=== PATIENT | female | born 1995 | race Caucasian/White ===

== ENCOUNTER 2016-12-20 05:31 | Day surgery (SDC) | payer SELFPAY ==
[~2016-12-20] VITALS: Ht 172.7 cm; Wt 122.0 kg
--- NOTE | ~2016-12-20 | S ---
[facility] [address] [place] [address] SURGICAL PATH RPT PROCEDURE Name: HAMILTON FERNANDO Room #: 422-P REG [facility] [place] [place] M.R.#: [id number] Admission: 12/20/16 Date of : 89 Discharge: Report #: [id number] Path Case #: [id number] PATHOLOGY REPORT DRAFT COLLECTION DATE: 12/20/2016 RECEIVED DATE: 12/20/2016 SPECIMEN(S) RECEIVED: A.Gastric sleeve
--- NOTE | ~2016-12-20 | O ---
[facility] [place] [address] OPERATIVE REPORT Name: HAMILTON FERNANDO Room #: 422-P REG [facility] [place] M.R.#: [id number] Admission: 12/20/16 Attend Phys: Mo Fan MD, F Discharge: Date of : [birth year] Report #: [id number] THIS REPORT FOR: //name// CC: Mary Fan DATE OF SERVICE: 12/20/2016 SURGEON: Mo Fan MD. IMPROVEMENT RN: Shahid Garcia MD. SECOND ARMATURE CONNECTOR: ASHLY Suh. PREOPERATIVE DIAGNOSES: 1. Morbid obesity. 2. Hypothyroidism. 3. Pernicious anemia. POSTOPERATIVE DIAGNOSES: 1. Morbid obesity. 2. Hypothyroidism. 3. Pernicious anemia. PROCEDURE: Laparoscopic sleeve gastrectomy with EGD. ANESTHESIA: General endotracheal anesthesia and local anesthetic. ESTIMATED BLOOD LOSS: 5 mL. SPECIMEN: Lateral stomach. COMPLICATIONS: None appreciated. INDICATIONS FOR PROCEDURE: This is a 21-year-old female patient who is morbidly obese with a history of hypothyroidism and pernicious anemia. She has been cleared from a multidisciplinary standpoint for bariatric surgery. Any amount of weight she has lost in the past, she has quickly regained, plus additional weight, after stopping the modality. The patient presents today for laparoscopic sleeve gastrectomy. OPERATIVE FINDINGS: On EGD, the patient's esophagus was normal, down to 38 cm, where the GE junction and Z-line were seen. There was no evidence for hiatal hernia. The stomach and duodenum to the third portion were also normal without [facility] [address] [place] [address] OPERATIVE REPORT Name: HAMILTON FERNANDO Room #: 422-P REG [facility]#: [id number] Admission: 12/20/16 Attend Phys: Mo Fan MD, F Discharge: Date of : [birth year] Report #: [id number] polyps, diverticula, masses, or ulcers. On retroflexion of the gastroscope within the antrum of the stomach, there was no evidence for hiatal hernia. Laparoscopically, the patient had an enlarged stomach as expected. The patient's liver was slightly steatotic, without nitish steatohepatitis. The small-bowel and colon in the surrounding area appeared otherwise normal. The spleen was slightly enlarged. The gastric sleeve staple line was 1 cm lateral to the GE junction proximally, 3 cm lateral to the incisura of the stomach, and 4 cm proximal to the pylorus. There was no evidence for staple line leak after testing the anastomosis. Immediately after applying Tisseel to the staple line, the gastroscope was used to gently insufflate the stomach with carbon dioxide. No air bubbles were seen to be forming in the Tisseel, indicating no leak. In addition, endoluminally with the gastroscope, no bleeding was seen within the sleeve. No other significant intraabdominal pathology was identified. There was no evidence for iatrogenic injury. At the conclusion of the operation, sponge, needle, and instrument counts were correct. The excised stomach held 1000 mL of fluid. DESCRIPTION OF PROCEDURE IN DETAIL: After the benefits and risks of the procedure were explained to the patient which include but are not limited to risks of bleeding, infection, postoperative pain, postoperative expectations and risks of DVT and pulmonary embolus, informed consent was obtained. The patient was identified in the preoperative holding area. The patient was given IV antibiotics as documented in the chart in line with SCIP protocol. The patient was then taken to the operating room and was placed in the supine position. The patient was given IV sedation and was intubated without incident. SCDs were placed on the patient's bilateral lower extremities prior to induction of anesthesia. The patient had been placed in the modified low lying dorsal lithotomy position in stirrups on the beanbag. The beanbag and the patient were taped to the bed to secure the patient. A time-out was then performed to correctly identify the patient and procedure. An orogastric tube was placed by anesthesia. A bite block was placed and the fiberoptic EGD scope was passed into the patient's oropharynx, down the esophagus, into the stomach, and into the third portion of the duodenum. Findings are as noted above. The scope was slowly withdrawn into the antrum and the scope was retroflexed. The hiatus was visualized. The scope was then straightened and the end of the gastroscope was placed at the pylorus. The stomach was decompressed with the scope. The patient's abdomen was then prepped and draped in the standard sterile fashion with surgical prep. Local anesthetic was infiltrated into the skin and subcutaneous tissue in the left supraumbilical area where a sharp #15-blade scalpel was used to make a 5-mm incision. The 5-mm Visiport was placed intraperitoneally with the 5-mm 0-degree angled laparoscope. Pneumoperitoneum was then achieved with insufflation of carbon dioxide to 15 mmHg. A 5-mm [address] [address] OPERATIVE REPORT Name: HAMILTON FERNANDO Room #: 422-P REG [facility]#: [id number] Admission: 12/20/16 Attend Phys: Mo Fan MD, F Discharge: Date of : [birth year] Report #: [id number] 30-degree angled laparoscope was then inserted. The 15-mm port was placed in the right supraumbilical area after local anesthetic was infiltrated into the skin and subcutaneous tissue and an appropriately sized incision was made. Two additional 5 mm ports were placed in the left abdomen after local anesthetic was infiltrated and incisions were made. All ports were placed under direct visualization. The patient was then placed in reverse Trendelenburg position. Local anesthetic was infiltrated into the skin and subcutaneous tissue in the subxiphoid area and a 5-mm incision was made through which a 5-mm obturator was passed into the abdominal cavity through the fascia to create a passageway for the Randa liver retractor. The retractor was placed to retract the liver anteriorly. The retractor was held in place with the Iron Adoption Worker apparatus. All abdominal adhesions were then taken down with blunt dissection, sharp dissection and judicious use of the ultrasonic dissector. The gastrosplenic ligament and short gastric vessels were then divided using the ultrasonic dissector with appropriate traction. Bleeding points were made hemostatic with the ultrasonic dissector. Dissection was carried proximally up to the left winnie of the diaphragm. The distal end point of dissection was then measured at 4 cm proximal to the pylorus. The short gastric vessels and gastrocolic ligaments were dissected to that level. The stomach was then rotated medially to visualize any posterior attachments/adhesions to the stomach. The adhesions were dissected with a combination of sharp dissection and use of the ultrasonic dissector. The endoscope was then slightly withdrawn to place it along the lesser curvature of the stomach. Suction was applied to the orogastric tube which was then removed, leaving the endoscope in place as a bougie. The gastric sleeve was then created. Two black loads of the powered endoscopic JENNIFER stapler buttressed with Zoila-Strips were used to staple and divide the stomach 4 cm proximal to the pylorus. Additional green loads buttressed with Zoila-strips were used to staple off the remainder of the stomach using the endoscope as the bougie. Care was taken to ensure that greater than 3 cm of space was present between the incisura and the staple line. The stomach was fully transected and placed in the right upper quadrant of the abdomen for later removal. The staple line of the sleeve was then clipped with Hemoclips along the staple line to provide hemostasis. Tisseel was applied to the entire length of the staple line with the TemptsterspOptiNose aerosolizer to fully ensure hemostasis. A leak test was performed next. The sleeve was insufflated with the endoscope which was slowly withdrawn. No air bubbles were seen in the Tisseel laparoscopically. Endoluminally, no bleeding was seen. The stomach was fully decompressed and the scope was slowly withdrawn. The Randa liver retractor was then loosened from the Iron Adoption Worker apparatus and it was removed without difficulty. The stomach was then removed from the patient's body through the 15-mm port [address] [address] OPERATIVE REPORT Name: HAMILTON FERNANDO Room #: 422-P REG [facility] [place] M.R.#: [id number] Admission: 12/20/16 Attend Phys: Mo Fan MD, F Discharge: Date of : [birth year] Report #: [id number] under direct visualization. A small amount stretching of the fascia was required to create an opening large enough for removal of the stomach. After its removal, the 15-mm port site fascial opening was closed with an 0-PDS suture using the Jairo-Cora laparoscopic fascial closure device. All ports were removed after the abdominal cavity was desufflated. The fascial suture was tied. Interrupted subcuticular 4-0 Monocryl sutures and Dermabond were used to close all skin incisions. The patient tolerated the procedure well. The patient was awakened, extubated and taken to the recovery room in stable condition with no apparent intraoperative complications. By: [id number] Mo Fan MD, FACS /nt
[~2016-12-20 05:31] MED LIST: B12INJ IM; CAMRESE 0.15-01 EACH PO; DULERA 200 MCG/13 GM INH; LEVOTHYROXIN0.075 MG PO; MINOCIN MC; PHENERGAN PO; SINGULAIR 10 MG10 M1 PO; SYNTHROID50 MCG PO; VENTOLIN HFA 1818 GM INH
[2016-12-20 07:30] VITALS: BP 147/88
[2016-12-20 10:53] VITALS: BP 140/91
[2016-12-20 11:20] VITALS: BP 137/98
[2016-12-20 15:29] VITALS: BP 135/81
[2016-12-20 20:00] VITALS: BP 127/63
[2016-12-21 04:48] VITALS: BP 126/66
[2016-12-21 05:25] LABS: ABSOLUTE NEUTROPHILS 6.9 thou/uL (1.4-8.2); BASOPHILS 0.3 % (0.0-2.0); EOSINOPHILS 0.2 % (0.0-3.0); HEMATOCRIT 32.7 % (37.0-47.0); HEMOGLOBIN 10.8 gm/dL (12.0-15.0); LYMPHOCYTES 25.4 % (24.0-44.0); MCH 26.6 pg (26.0-34.0); MCHC 33.1 g/dL (28.0-37.0); MCV 80.5 fL (80.0-100.0); MONOCYTES 7.4 % (1.0-8.0); PLATELET COUNT 251 thou/uL (150-400); POLYS 66.7 % (36.0-66.0); RBC 4.06 mil/uL (4.20-5.00); RDW 14.4 % (10.5-14.5); WBC 10.3 thou/uL (4.0-11.0)
[2016-12-21 05:30] LABS: MANUAL DIFF NO
[2016-12-21 05:36] LABS: CALCIUM 8.2 mg/dL (8.5-10.1); CREATININE 0.8 mg/dL (0.6-1.0); POTASSIUM 3.8 mmol/L (3.5-5.1)
[2016-12-21 07:14] VITALS: BP 143/68
[2016-12-21 10:14] VITALS: BP 143/68
[2016-12-21 10:48] VITALS: BP 143/68
== END 2016-12-21 11:10 | disposition home or self-care (01) ==
LOC: OR 05:31 → TBA 05:31 → OR 06:51 → 4E 11:07 → OR 11:23
PROVIDERS: Surgery
DX: E66.01 Morbid (severe) obesity due to excess calories (principal); E03.9 Hypothyroidism, unspecified; D51.0 Vitamin B12 deficiency anemia due to intrinsic factor deficiency; K44.9 Diaphragmatic hernia without obstruction or gangrene; E11.9 Type 2 diabetes mellitus without complications
CPT/HCPCS: 50010; 50101

== ENCOUNTER 2016-12-23 00:02 | Inpatient (IN) | payer OTHER ==
[~2016-12-23] VITALS: Ht 172.7 cm; Wt 123.8 kg
[2016-12-23] VITALS (7 sets, daily range): BP systolic 96–159; BP diastolic 43–88
--- NOTE | ~2016-12-23 | HC ---
[facility] [place] [address] CONSULTATION Name: HAMILTON FERNANDO Room #: 424-P [facility] [place] .R.#: [id number] Admission: 12/23/16 Attend Phys: Richard Alicea MD Discharge: Date of : 94 Report #: [id number] THIS REPORT FOR: //name// CC: Mary Fan DATE OF CONSULTATION: 12/24/2016. REASON FOR CONSULTATION: Acute kidney injury. HISTORY OF PRESENT ILLNESS: This 21-year-old female underwent laparoscopic sleeve procedure on December 20. She had poor oral intake following this procedure and had significant diarrhea. She became increasingly weak with fever and presented to the Emergency Room in followup. She was found to have acute kidney injury and admitted for further evaluation and treatment. Her initial creatinine on presentation had risen from a preop value of 1.1 to a value of 3.5. Repeat value is 4.1 prompting renal consultation. The patient has no prior history of nephrolithiasis, hypertension, urinary tract infection or gross hematuria. There is no family history of renal disease. PAST MEDICAL HISTORY: Is otherwise remarkable for exogenous obesity. MEDICATIONS: Include Dulera, Synthroid, Singulair, Ventolin, control pills and vitamin B12. PAST SURGICAL HISTORY: She is status post previous cholecystectomy, Achilles tendon surgery, wisdom tooth extraction, adenoidectomy. ALLERGIES: She has no known allergies. PERSONAL AND SOCIAL HISTORY: The patient consumes alcohol socially. She has no history of substance abuse. She does not smoke. REVIEW OF SYSTEMS: Remarkable as described in the history of present illness for diarrhea and fever. She denies shortness of breath, productive cough, hemoptysis, chest pain, palpitations. PHYSICAL EXAMINATION: GENERAL: Reveals a well-developed, well-nourished female appearing her stated age, in no acute distress. VITAL SIGNS: Blood pressure 101/54, temperature 98.3, pulse 87, respirations 19. SKIN: Warm and dry. There is fair turgor noted. Mucous membranes are somewhat dry. HEENT: The head is normocephalic and atraumatic. The sclerae are white and [facility] [address] [place] [address] CONSULTATION Name: HAMILTON FERNANDO Room #: 424-P [facility] IN .R.#: [id number] Admission: 12/23/16 Attend Phys: Richard Alicea MD Discharge: Date of : 94 Report #: [id number] conjunctivae are not injected. The pharynx is benign. NECK: Supple. LUNGS: Sykes are grossly clear to percussion and auscultation. CARDIOVASCULAR: Reveals a regular rate and rhythm without rub. ABDOMEN: Soft and nontender without palpable mass or organomegaly. NEUROLOGIC: Reveals the patient to be alert and cooperative with a nonfocal examination. LABORATORY STUDIES: Available at this time includes sodium 141, potassium 3.0, chloride 107, CO2 19, BUN 13, creatinine 3.5, glucose 102. White blood cell count 16,100, hemoglobin 11.5, hematocrit 35.1, platelet count 242,000. Urinalysis: Clear yellow urine, specific gravity 1.025, pH of 5.5, 1+ ketones, 1+ blood, 1+ test. ASSESSMENT: 1. Acute kidney injury post gastric sleeve procedure. The patient does appear somewhat dehydrated at this time and with the combination of poor oral intake and diarrhea, this is the leading diagnostic possibility. There are no clear nephrotoxins. I agree at this time with continued isotonic hydration at rehydration rates. We will obtain the urine for sodium, creatinine and a urine for eosinophils. Renal ultrasound will be checked to rule out the very likely possibility of urinary tract obstruction. 2. Status post gastric sleeve. 3. Febrile illness. 4. Diarrhea. PLAN: As described above. Please see orders. <ELECTRONICALLY SIGNED> By: Remberto Mckeno MD 12/30/16 0552 [id number] Remberto Mckeon MD /nt
--- NOTE | ~2016-12-23 | HC ---
[facility] [place] [address] CONSULTATION Name: HAMILTON FERNANDO Room #: 424-P ADM IN M.R.#: [id number] Admission: 12/23/16 Attend Phys: Richard Alicea MD Discharge: Date of : 94 Report #: [id number] THIS REPORT FOR: //name// CC: Mary Fan HISTORY OF PRESENT ILLNESS: The patient is a 21-year-old white woman, status post laparoscopic gastric sleeve procedure this past Friday, developed diarrhea, nausea, vomiting, and fever on Friday, is admitted. She is started on vancomycin, Levaquin, and today, she is feeling improved. Unfortunately, because of profuse diarrhea, she has acute tubular necrosis, nonoliguric. Dr. Gonsalez requests I evaluate and manage the patient's antibiotics. PAST MEDICAL HISTORY: History of sinusitis, recurrent; history of tympanostomy tube requirement, status post cholecystectomy, bronchial asthma, surgery for a left Achilles tendon problem, recent laparoscopic gastric banding, development of Clostridium difficile colitis, acute renal failure and positive stool for Campylobacter antigen. DRUG ALLERGIES: None listed. MEDICATIONS: The patient is on treatment with Levaquin 750 mg IV every 48 hours, vitamin B12 1000 mcg IM monthly, sodium bicarbonate infusion, budesonide inhalation twice daily, vancomycin 250 q.i.d., pantoprazole 40 mg b.i.d., Montelukast 10 mg at bedtime, acetaminophen p.r.n., levothyroxine 75 mcg daily, p.r.n. fentanyl, p.r.n., ondansetron. SOCIAL HISTORY: Adopted. FAMILY HISTORY: See H and P and as above. REVIEW OF SYSTEMS: Nausea, diarrhea and abdominal pain, improved. Fever, improved. PHYSICAL EXAMINATION: GENERAL: Obese woman. VITAL SIGNS: Febrile up to 103.4 on December 23, 100.6 on December 23 and 99.9 today; pulse 62, respirations 16, BP 132/62. Height 5 feet 8 inches, weight 273 pounds. HEENT: Within normal limits. NECK: Supple, no thyromegaly. LUNGS: Clear. HEART: S1, S2. ABDOMEN: Laparoscopic wounds, mildly tender mainly on the wounds. PELVIC AND RECTAL: Deferred. EXTREMITIES: No clubbing, cyanosis. [facility] [address] [place] [address] CONSULTATION Name: HAMILTON FERNANDO Room #: 424-P ADM IN M.R.#: [id number] Admission: 12/23/16 Attend Phys: Richard Alicea MD Discharge: Date of : 89 Report #: [id number] NEUROLOGIC: Grossly within normal limits. LABORATORY DATA: Sodium 142, potassium 3.6, CO2 20, BUN 23, creatinine 5.6, calcium 8.4, albumin 2.4. WBC on admission 20,300, down to 11,900 yesterday; hemoglobin 10.7 g/dL, platelets 236,000, eosinophil count 400. test negative. C. difficile toxin assay positive. Urinalysis revealed 1+ protein, trace ketones, trace blood. Stool positive for Campylobacter antigen. Cultures negative. RADIOLOGY EVALUATION: Consistent of chest x-ray revealed left base atelectasis. ASSESSMENT: 1. Clostridium difficile colitis. 2. Stool positive for Campylobacter antigen, question significance. 3. Fever, resolved. 4. Leukocytosis, improved. 5. Acute renal failure secondary to acute tubular necrosis. 6. Morbid obesity, status post laparoscopic gastric banding. 7. History of sinusitis and bronchial asthma. SUGGESTIONS: Recommend continue oral vancomycin 250 q.i.d. for at least 10 days. Discontinue Levaquin, azithromycin 500 mg IV daily for 3-4 days. The patient appears already improved on current regimen and main issue currently is acute tubular necrosis, Dr. Gonsalez and Dr. Galvan, thank you for requesting my suggestions in the care of your patient. <ELECTRONICALLY SIGNED> By: Ruy Gill MD 12/27/16 1215 [id number] Ruy Gill MD /nt
[2016-12-23 00:53] LABS: URINE BILIRUBIN 1+ (Negative); URINE BLOOD NEGATIVE (Negative); URINE COLOR YELLOW; URINE GLUCOSE-RANDOM* NEGATIVE (Negative); URINE KETONES 1+ (Negative); URINE LEUKOCYTES-REFLEX NEGATIVE (Negative); URINE PROTEIN (DIPSTICK) NEGATIVE (Negative); URINE SPECIFIC GRAVITY 1.025 (1.003-1.035); URINE UROBILINOGEN 0.2 E.U./dl (0.2-1.0)
[2016-12-23 00:54] LABS: ICTOTEST (BILI CONFIRMATORY) Positive (Negative)
[2016-12-23 01:00] LABS: HEMATOCRIT 38.8 % (37.0-47.0); HEMOGLOBIN 12.5 gm/dL (12.0-15.0); MCH 25.9 pg (26.0-34.0); MCHC 32.2 g/dL (28.0-37.0); MCV 80.5 fL (80.0-100.0); PLATELET COUNT 253 thou/uL (150-400); RBC 4.82 mil/uL (4.20-5.00); RDW 14.6 % (10.5-14.5); WBC 20.3 thou/uL (4.0-11.0)
[2016-12-23 01:01] LABS: MANUAL DIFF YES
[2016-12-23 01:06] LABS: CALCIUM 9.1 mg/dL (8.5-10.1); CREATININE 1.1 mg/dL (0.6-1.0); POTASSIUM 3.4 mmol/L (3.5-5.1)
[2016-12-23 01:10] LABS: ALBUMIN 3.5 g/dL (3.4-5.0); TOTAL BILIRUBIN 0.6 mg/dL (<0.1-1.0); TOTAL PROTEIN 7.3 g/dL (6.4-8.2)
[2016-12-23 01:19] LABS: ABSOLUTE NEUTROPHILS 17.5 thou/uL (1.4-8.2); TOTAL CELL COUNT 100
[2016-12-23] MEDS ORDERED: HYDROCODONE-ACE15 ML PO (01:23)
[2016-12-23 05:57] LABS: HEMATOCRIT 36.3 % (37.0-47.0); HEMOGLOBIN 11.9 gm/dL (12.0-15.0); MCH 26.1 pg (26.0-34.0); MCHC 32.9 g/dL (28.0-37.0); MCV 79.4 fL (80.0-100.0); PLATELET COUNT 254 thou/uL (150-400); RBC 4.57 mil/uL (4.20-5.00); RDW 14.2 % (10.5-14.5); WBC 21.3 thou/uL (4.0-11.0)
[2016-12-23 06:02] LABS: MANUAL DIFF YES
[2016-12-23 09:01] LABS: ABSOLUTE NEUTROPHILS 18.5 thou/uL (1.4-8.2); ANISOCYTOSIS SLIGHT; TOTAL CELL COUNT 100
[2016-12-24 00:30] VITALS: BP 101/54
[2016-12-24 04:20] VITALS: BP 104/59
[2016-12-24 06:10] LABS: HEMATOCRIT 35.1 % (37.0-47.0); HEMOGLOBIN 11.5 gm/dL (12.0-15.0); MCH 26.3 pg (26.0-34.0); MCHC 32.8 g/dL (28.0-37.0); MCV 80.1 fL (80.0-100.0); RBC 4.39 mil/uL (4.20-5.00); RDW 14.5 % (10.5-14.5); WBC 16.1 thou/uL (4.0-11.0)
[2016-12-24 06:27] LABS: ALBUMIN 2.7 g/dL (3.4-5.0); CALCIUM 8.3 mg/dL (8.5-10.1); TOTAL BILIRUBIN 0.3 mg/dL (<0.1-1.0); TOTAL PROTEIN 6.4 g/dL (6.4-8.2)
[2016-12-24 06:35] LABS: CREATININE 3.5 mg/dL (0.6-1.0)
[2016-12-24 07:23] VITALS: BP 141/56
[2016-12-24 13:32] LABS: URINE BILIRUBIN NEGATIVE (Negative); URINE BLOOD TRACE (Negative); URINE COLOR YELLOW; URINE GLUCOSE-RANDOM* NEGATIVE (Negative); URINE KETONES TRACE (Negative); URINE NITRITE NEGATIVE (Negative); URINE PROTEIN (DIPSTICK) 1+ (Negative); URINE SPECIFIC GRAVITY <= 1.005 (1.003-1.035); URINE UROBILINOGEN 0.2 E.U./dl (0.2-1.0)
[2016-12-24 13:40] LABS: BACTERIA None Seen /HPF (None Seen); CASTS None Seen /LPF (None Seen); CRYSTALS None Seen /LPF (None Seen); SQUAMOUS 0-3 Few /LPF (0-3); URINE RBC 0-2 Rare /HPF (0-2); URINE WBC None Seen /HPF (0-5)
[2016-12-24 16:10] VITALS: BP 141/56
[2016-12-24 19:50] VITALS: BP 122/67
[2016-12-24 22:06] LABS: URINE CREATININE-RANDOM* 52.2 mg/dL (Not Estab.)
[2016-12-25 05:58] LABS: HEMOGLOBIN 10.7 gm/dL (12.0-15.0); MCHC 32.5 g/dL (28.0-37.0); MCV 79.9 fL (80.0-100.0); RBC 4.13 mil/uL (4.20-5.00); RDW 14.7 % (10.5-14.5); WBC 11.9 thou/uL (4.0-11.0)
[2016-12-25 06:19] LABS: ALBUMIN 2.5 g/dL (3.4-5.0); CALCIUM 8.4 mg/dL (8.5-10.1); CREATININE 4.9 mg/dL (0.6-1.0); PHOSPHORUS 4.3 mg/dL (2.5-4.9); POTASSIUM 3.5 mmol/L (3.5-5.1)
[2016-12-25 07:25] VITALS: BP 142/76
[2016-12-25 15:49] VITALS: BP 117/65
[2016-12-25 20:00] VITALS: BP 142/78
[2016-12-26 04:22] LABS: ALBUMIN 2.4 g/dL (3.4-5.0); CALCIUM 8.4 mg/dL (8.5-10.1); CREATININE 5.6 mg/dL (0.6-1.0); PHOSPHORUS 4.4 mg/dL (2.5-4.9); POTASSIUM 3.6 mmol/L (3.5-5.1)
[2016-12-26 09:20] VITALS: BP 132/62
[2016-12-26 17:35] VITALS: BP 159/86
[2016-12-26 20:00] VITALS: BP 148/79
[2016-12-27 04:07] LABS: ALBUMIN 2.5 g/dL (3.4-5.0); CALCIUM 8.6 mg/dL (8.5-10.1); CREATININE 5.8 mg/dL (0.6-1.0); PHOSPHORUS 3.9 mg/dL (2.5-4.9); POTASSIUM 3.3 mmol/L (3.5-5.1)
[2016-12-27 05:55] VITALS: BP 147/97
[2016-12-27 07:26] VITALS: BP 154/89
[2016-12-27 15:12] VITALS: BP 130/80
[2016-12-27 19:30] VITALS: BP 143/79
[2016-12-28 08:10] VITALS: BP 148/86
[2016-12-28 08:39] LABS: HEMATOCRIT 34.1 % (37.0-47.0); HEMOGLOBIN 11.4 gm/dL (12.0-15.0); MCH 26.3 pg (26.0-34.0); MCHC 33.4 g/dL (28.0-37.0); MCV 78.7 fL (80.0-100.0); RBC 4.33 mil/uL (4.20-5.00); RDW 13.9 % (10.5-14.5); WBC 12.6 thou/uL (4.0-11.0)
[2016-12-28 08:55] LABS: CALCIUM 8.6 mg/dL (8.5-10.1); CREATININE 5.9 mg/dL (0.6-1.0); POTASSIUM 3.2 mmol/L (3.5-5.1)
[2016-12-28 15:04] VITALS: BP 121/75
[2016-12-28 20:00] VITALS: BP 173/91
[2016-12-28 22:29] VITALS: BP 162/80
[2016-12-28 23:56] VITALS: BP 161/95
[2016-12-29 03:49] LABS: HEMATOCRIT 30.3 % (37.0-47.0); MCH 25.8 pg (26.0-34.0); MCHC 32.9 g/dL (28.0-37.0); MCV 78.6 fL (80.0-100.0); RBC 3.86 mil/uL (4.20-5.00); RDW 14.2 % (10.5-14.5); WBC 11.1 thou/uL (4.0-11.0)
[2016-12-29 03:57] LABS: CALCIUM 8.2 mg/dL (8.5-10.1); CREATININE 5.4 mg/dL (0.6-1.0)
[2016-12-29 04:00] VITALS: BP 127/79
[2016-12-29 04:00] LABS: POTASSIUM 2.9 mmol/L (3.5-5.1)
[2016-12-29 08:01] VITALS: BP 154/97
[2016-12-29 11:23] VITALS: BP 147/86
[2016-12-29 15:32] VITALS: BP 150/90
[2016-12-29 20:25] VITALS: BP 154/96
[2016-12-30 04:15] VITALS: BP 159/86
[2016-12-30 05:47] LABS: HEMATOCRIT 29.9 % (37.0-47.0); MCH 26.4 pg (26.0-34.0); MCHC 33.4 g/dL (28.0-37.0); MCV 78.8 fL (80.0-100.0); RBC 3.79 mil/uL (4.20-5.00); RDW 14.6 % (10.5-14.5); WBC 9.6 thou/uL (4.0-11.0)
[2016-12-30 06:09] LABS: ALBUMIN 2.5 g/dL (3.4-5.0); CALCIUM 8.4 mg/dL (8.5-10.1); CREATININE 4.9 mg/dL (0.6-1.0); PHOSPHORUS 5.4 mg/dL (2.5-4.9); POTASSIUM 3.2 mmol/L (3.5-5.1)
[2016-12-30 07:35] VITALS: BP 155/79
[2016-12-30 15:41] VITALS: BP 162/90
[2016-12-31] VITALS: BP 157/54
[2016-12-31 04:15] VITALS: BP 172/97
[2016-12-31 06:16] LABS: ALBUMIN 2.7 g/dL (3.4-5.0); CALCIUM 8.7 mg/dL (8.5-10.1); CREATININE 4.1 mg/dL (0.6-1.0); MAGNESIUM 1.6 mg/dL (1.8-2.4); PHOSPHORUS 5.1 mg/dL (2.5-4.9); POTASSIUM 3.9 mmol/L (3.5-5.1)
[2016-12-31] MEDS ORDERED: VANCOMYCIN100 MG/M1 PO (16:08)
[2016-12-31] MEDS ORDERED: ZOFRAN ODT4 MG DISSOLVE (16:09)
[2016-12-31] MEDS ORDERED: POTASSIUM CHLO20 MEQ PO (16:09)
[2016-12-31 16:15] VITALS: BP 172/97
== END 2016-12-31 16:35 | disposition home or self-care (01) | DRG 871 ==
LOC: ER 00:02 → 4E 01:38 → EROBS 01:38 → 4E 02:04
PROVIDERS: Emergency Medicine; Internal Medicine; Internal Medicine Nephrology; Nurse Practitioner Family
DX: A41.9 Sepsis, unspecified organism (principal); N17.0 Acute kidney failure with tubular necrosis; A04.7 Enterocolitis due to Clostridium difficile; A04.5 Campylobacter enteritis; Z68.41 Body mass index [BMI] 40.0-44.9, adult; J45.909 Unspecified asthma, uncomplicated; E03.9 Hypothyroidism, unspecified; G43.909 Migraine, unspecified, not intractable, without status migrainosus; N18.9 Chronic kidney disease, unspecified; E87.6 Hypokalemia; E66.01 Morbid (severe) obesity due to excess calories; Z98.84 Bariatric surgery status; Z90.49 Acquired absence of other specified parts of digestive tract
CPT/HCPCS: 10084